=== PATIENT | male | born 1960 | race African-American/Black ===

== ENCOUNTER 2021-06-19 09:23 | Emergency (ER) | payer MEDICAID ==
[~2021-06-19] VITALS: Ht 170.2 cm; Wt 74.0 kg
[2021-06-19] MEDS ORDERED: FAMOTIDINE 20MG/2ML VIAL IV STA (10:26)
[2021-06-19] MEDS ORDERED: MAGNESIUM/ALUMINUM HYDROXIDE/SIMETHICONE 30ML UDC PO STA (10:26)
[2021-06-19] MEDS ORDERED: ONDANSETRON HCL 4MG/2ML INJ IV STA (10:26)
[2021-06-19] MEDS ORDERED: SODIUM CHLORIDE 0.9% 1,000 ML IV ONE (10:30)
[2021-06-19 11:10] LABS: HEMATOCRIT. 38.8 % (42.0-52.0); HEMOGLOBIN. 13.3 g/dL (14.0-18.0); MEAN CORPUSCULAR HEMOGLOBIN 30.9 pg (28.0-32.0); MEAN CORPUSCULAR VOLUME 90.3 fL (80.0-94.0); MEAN PLATELET VOLUME 9.1 fl (7.4-10.4); PLATELET 130 x1000/uL (130-400); RED BLOOD CELL COUNT 4.29 mill/uL (4.7-6.1); RED CELL DISTRIBUTION WIDTH 13.7 % (11.6-14.6)
[2021-06-19 11:17] LABS: CHLORIDE 105 mEq/L (98-107)
[2021-06-19 12:20] LABS: CLARITY URINE CLEAR (CLEAR); COLOR URINE DARK YELLOW (YELLOW); KETONES URINE 1+ (NEGATIVE); LEUKOCYTE ESTERASE URINE NEGATIVE (NEGATIVE); NITRITE URINE NEGATIVE (NEGATIVE); OCCULT BLOOD URINE NEGATIVE (NEGATIVE); PH URINE 5.5 (4.5-8.0); PROTEIN URINE 1+ (NEGATIVE); SPECIFIC GRAVITY URINE 1.029 (1.005-1.030)
[2021-06-19 12:25] LABS: PLATELET ESTIMATE NORMAL
[2021-06-19] MEDS ORDERED: ONDA4TAB5 MT (14:38)
[2021-06-19] MEDS ORDERED: MAG-55 MT (14:38)
[2021-06-19] MEDS ORDERED: FAMO20TA8 MT (14:38)
[2021-06-19 15:15] VITALS: BP 121/85
== END 2021-06-19 15:27 | disposition home or self-care (01) ==
LOC: ER 09:23
DX: R10.9 Unspecified abdominal pain (principal)
CPT/HCPCS: 36415; 71045; 74018; 80053; 81003; 83690; 85025; 93005; 96361; 96374; 96375; 99285; J2405; J3490; J7030

== ENCOUNTER 2023-12-13 01:18 | Emergency (ER) | payer MEDICAID, OTHER ==
[~2023-12-13] VITALS: Ht 170.2 cm; Wt 70.0 kg
[~2023-12-13 01:18] MED LIST: FAMO20TA8 MT; MAG-55 MT; ONDA4TAB5 MT
[2023-12-13 01:20] VITALS: O2SAT 100
[2023-12-13] MEDS ORDERED: ACET-2708 MT (03:54)
[2023-12-13] MEDS ORDERED: POLY119P2 MT (03:54)
[2023-12-13] MEDS: POLYETHYLENE GLYCOL 3350 (17GM) 1 DOSE PACK PO ONE (04:01)
[2023-12-13] MEDS: ACETAMINOPHEN 325MG TABLET PO ONE (04:01)
[2023-12-13 04:23] VITALS: BP 139/75; PULSE 60; RESP 16; TEMP 98.8
== END 2023-12-13 04:35 | disposition home or self-care (01) ==
LOC: ER 01:18
DX: K59.00 Constipation, unspecified (principal); F19.90 Other psychoactive substance use, unspecified, uncomplicated
CPT/HCPCS: 74018; 99283; Z7610

== ENCOUNTER 2024-02-11 16:32 | Emergency (ER) | payer MEDICAID, OTHER ==
[~2024-02-11] VITALS: Ht 175.3 cm; Wt 75.0 kg
[~2024-02-11 16:32] MED LIST changes: +ACET-2708 MT; +POLY119P2 MT
[2024-02-11 16:36] VITALS: BP 131/92; PULSE 80; RESP 16; O2SAT 98
[2024-02-11] MEDS ORDERED: ACETAMINOPHEN 500MG TABLET PO ONE (17:15)
[2024-02-11 17:52] VITALS: TEMP 98.1
[2024-02-11] MEDS: ACETAMINOPHEN 500MG TABLET PO NR (17:52)
[2024-02-11] MEDS ORDERED: NAPR-1176 MT (17:57)
[2024-02-11] MEDS ORDERED: LIDO700A15 TP (17:57)
== END 2024-02-11 19:39 | disposition home or self-care (01) ==
LOC: ER 16:32
DX: M54.6 Pain in thoracic spine (principal); Z79.899 Other long term (current) drug therapy
CPT/HCPCS: 72070; 99283

== ENCOUNTER 2025-02-04 16:24 | Emergency (ER) | payer MEDICAID ==
[~2025-02-04] VITALS: Ht 170.2 cm; Wt 69.0 kg
[~2025-02-04 16:24] MED LIST changes: +LIDO-53 TP; +NAPR-1176 MT
[2025-02-04 16:30] VITALS: TEMP 36.7; O2SAT 100
[2025-02-04] MEDS: KETOROLAC 30MG/ML VIAL IM ONE (18:07)
[2025-02-04] MEDS ORDERED: KETO10TA2 MT (19:11)
[2025-02-04] MEDS ORDERED: LIDO-53 TP (19:14)
[2025-02-04 19:36] VITALS: BP 164/82; PULSE 65; RESP 16; O2SAT 99
== END 2025-02-04 19:40 | disposition home or self-care (01) ==
LOC: ER 16:24
DX: M79.604 Pain in right leg (principal); I10 Essential (primary) hypertension; Z79.1 Long term (current) use of non-steroidal anti-inflammatories (NSAID)
CPT/HCPCS: 99284; 73552; 72170; 73560; 96372; J1885